=== PATIENT | female | born 1960 | race Two or more races ===

== ENCOUNTER 2018-06-13 20:56 | Inpatient (IN) | payer MEDICAID ==
[~2018-06-13] VITALS: Ht 157.5 cm; Wt 66.4 kg
[~2018-06-13 20:56] MED LIST: METF-370 PO
[2018-06-13 22:18] LABS: Basophils # (auto) 0 uL; Basophils % (auto) 0.1 % (0.0-2.0); Eosinophils # (auto) 0 uL; Hematocrit 48.6 % (36.0-46.0); Hemoglobin 16.4 g/dL (12.2-16.2); Lymphocytes # (auto) 1.1 uL; Lymphocytes % (auto) 7.2 % (10.0-50.0); Mean Corpuscular Hemoglobin 31.4 pg (28.0-32.0); Mean Corpuscular Hgb Conc. 33.7 g/dL (32.0-36.0); Mean Corpuscular Volume 93.4 fL (80.0-100.0); Monocytes # (auto) 1.1 uL; Monocytes % (auto) 7.5 % (0.0-12.0); Neutrophils # (auto) 12.7 uL; Neutrophils % (auto) 85.2 % (37.0-80.0); Nucleated Red Blood Cells % 0.1 %; Platelet Count (auto) 158 10^3/uL (140-450); Red Blood Cells 5.21 10^6/uL (4.0-5.20); Red Cell Distribution Width 13.7 % (11.8-14.3); White Blood Cell 14.9 10^3/uL (4.4-10.8)
[2018-06-13 22:21] LABS: Alanine Aminotransferase 266 U/L (13-56); Albumin 2.6 g/dL (3.4-5.0); Anion Gap 10 (5-15); Aspartate Aminotransferase 371 U/L (15-37); BUN/Creatinine Ratio 17.2; Blood Urea Nitrogen 28 mg/dL (7-18); Calcium 8.1 mg/dL (8.5-10.1); Carbon Dioxide 22 mmol/L (21-32); Chloride 98 mmol/L (98-107); GFR African American 42 mL/min; GFR Non-African American 34 mL/min; Glucose 198 mg/dL (74-106); Magnesium 2.5 mg/dL (1.6-2.6); Potassium 3.7 mmol/L (3.5-5.1); Sodium 130 mmol/L (136-145)
[2018-06-13 22:23] LABS: Partial Thromboplastin Time 32.9 sec (23.78-33.04); Prothrombin Time 10.7 sec (9.27-12.13)
[2018-06-13 22:26] LABS: Alkaline Phosphatase 165 U/L (45-117); Bilirubin, Total 0.6 mg/dL (0.2-1.0); Total Protein 8.4 g/dL (6.4-8.2)
[2018-06-14] MEDS ORDERED: LEVOFLOXACIN 750MG 150 ML IV ONE (01:00)
[2018-06-14] MEDS ORDERED: HYDROcodone-ACET 5/325MG TAB PO PRN ×2 (01:30→05:15)
[2018-06-14] MEDS ORDERED: DEXTROSE (50%) 50ML SYRG IV PRN (01:30)
[2018-06-14] MEDS ORDERED: SODIUM CHLORIDE 0.9% 1,000 ML IV ONE (02:00)
[2018-06-14] MEDS: cefTRIAXone 1GM/50ML D5W 50 ML IV SCH (05:56)
[2018-06-14 06:02] LABS: Basophils # (auto) 0 uL; Basophils % (auto) 0.1 % (0.0-2.0); Eosinophils # (auto) 0 uL; Hematocrit 44.8 % (36.0-46.0); Hemoglobin 15.1 g/dL (12.2-16.2); Lymphocytes # (auto) 1.4 uL; Lymphocytes % (auto) 12.2 % (10.0-50.0); Mean Corpuscular Hgb Conc. 33.6 g/dL (32.0-36.0); Mean Corpuscular Volume 92.2 fL (80.0-100.0); Monocytes # (auto) 0.9 uL; Monocytes % (auto) 7.6 % (0.0-12.0); Neutrophils # (auto) 9.4 uL; Neutrophils % (auto) 80.1 % (37.0-80.0); Platelet Count (auto) 135 10^3/uL (140-450); Red Blood Cells 4.86 10^6/uL (4.0-5.20); Red Cell Distribution Width 13.6 % (11.8-14.3); White Blood Cell 11.8 10^3/uL (4.4-10.8)
[2018-06-14 06:11] LABS: Calcium 7.8 mg/dL (8.5-10.1); Potassium 3.7 mmol/L (3.5-5.1)
[2018-06-14 06:13] LABS: BUN/Creatinine Ratio 22.9
[2018-06-14] MEDS: AZITHROMYCIN 500MG/ 250ML 250 ML IV SCH (06:22)
[2018-06-14] MEDS: ACCU-CHEK COMFORT CURVE STRIP VI SCH ×4 (08:35→21:56)
[2018-06-14] MEDS: InsuLIN REG 1unit/0.01ml Soln (100units/ml) SC SCH ×4 (08:39→21:56)
[2018-06-14] MEDS ORDERED: SODIUM CHLORIDE 0.9% 1,000 ML IV SCH (14:15)
--- NOTE | 2018-06-14 14:45 | NUR ---
ADMIT PATIENT arrived from ER vis w/c, accompanied by staff. Placed in bed, ht 5'2", Wt: 65.3 KG vs: 97.2 98 18 95% 104/66. Replaced tubing on IV and flushed with ns. On telemetry #35 running SR 96. Patient on oxygen at 4L via N/c
[2018-06-14 17:00] VITALS: BP 107/69
[2018-06-14] MEDS: SODIUM CHLORIDE 0.9% 1,000 ML IV SCH (17:30)
--- NOTE | 2018-06-14 19:10 | NUR ---
SHIFT REPORT Report given to MAIN Watt of maintenance technician 2nd shift. Pt. resting in bed, bed locked, in low pos., rails up x2 and call light in reach.
[2018-06-14 20:15] VITALS: BP 105/59
[2018-06-14 21:26] LABS: Urine Bacteria NONE SEEN /hpf (None Seen); Urine Blood 1+ /uL (Negative); Urine Specific Gravity 1.017 (1.001-1.035); Urine WBC 3 /hpf (0 - 5)
[2018-06-14 22:00] VITALS: BP 105/59
--- NOTE | 2018-06-14 22:00 | NUR ---
URNINE SPECIMEN FOR UA SENT TO LAB
[2018-06-14] MEDS: ACETAMINOPHEN 500 MG TAB PO PRN (22:22)
--- NOTE | 2018-06-15 00:59 | NUR ---
SPECIMEN FOR INFLUENZA SENT TO LAB
[2018-06-15] MEDS: SODIUM CHLORIDE 0.9% 1,000 ML IV SCH ×3 (01:03→21:56)
--- NOTE | 2018-06-15 01:40 | NUR ---
PATIENT POSITIVE FOR INFLUENZA A, CHARGE NURSE MAUREEN NOTIFIED.
--- NOTE | 2018-06-15 02:04 | NUR ---
PATIENT MOVED TO ROOM 231 FOR ISOLATION. PATIENT POSITIVE INFLUENZA A.
[2018-06-15 05:00] VITALS: BP 107/65
[2018-06-15] MEDS: cefTRIAXone 1GM/50ML D5W 50 ML IV SCH (05:31)
[2018-06-15] MEDS: AZITHROMYCIN 500MG/ 250ML 250 ML IV SCH (06:35)
[2018-06-15] MEDS: ACCU-CHEK COMFORT CURVE STRIP VI SCH ×4 (06:47→21:56)
[2018-06-15] MEDS: InsuLIN REG 1unit/0.01ml Soln (100units/ml) SC SCH ×4 (06:47→21:57)
--- NOTE | 2018-06-15 07:43 | NUR ---
opening patient in bed, bed in lowest position, call light within reach. No distress noted at this time. Patient is positive for influenza A virus, precautions will be changed to droplet precautions. Blood cultures negative C diff is pending on this patient, but Bm have been solid. WBC 11.8 Plt count 135 Neut 80.1 allergy to morphine noted
--- NOTE | 2018-06-15 07:53 | NUR ---
ENDORSED PATIENT CARE TO DAY SHIFT NURSE ANNA QUACH.
[2018-06-15 09:00] VITALS: BP 95/52
[2018-06-15 09:46] LABS: Basophils # (auto) 0 uL; Basophils % (auto) 0.2 % (0.0-2.0); Eosinophils # (auto) 0 uL; Hematocrit 40.4 % (36.0-46.0); Hemoglobin 13.5 g/dL (12.2-16.2); Lymphocytes # (auto) 1.4 uL; Lymphocytes % (auto) 16.6 % (10.0-50.0); Mean Corpuscular Hgb Conc. 33.5 g/dL (32.0-36.0); Mean Corpuscular Volume 92.7 fL (80.0-100.0); Monocytes # (auto) 1.3 uL; Monocytes % (auto) 15.5 % (0.0-12.0); Neutrophils # (auto) 5.9 uL; Neutrophils % (auto) 67.7 % (37.0-80.0); Platelet Count (auto) 152 10^3/uL (140-450); Red Blood Cells 4.36 10^6/uL (4.0-5.20); Red Cell Distribution Width 13.4 % (11.8-14.3); White Blood Cell 8.6 10^3/uL (4.4-10.8)
[2018-06-15 10:11] LABS: Calcium 7.5 mg/dL (8.5-10.1); Potassium 3.6 mmol/L (3.5-5.1)
[2018-06-15 12:45] VITALS: BP 120/70
[2018-06-15 17:00] VITALS: BP 109/57
--- NOTE | 2018-06-15 18:56 | NUR ---
closing patient in bed, bed in lowest position, call light within reach. No distress noted at this time droplet precaution in place. will endorse care to noc nurse
--- NOTE | 2018-06-15 19:30 | NUR ---
Opening Shift Note Assumed care of patient, awake and alert. Pt on Droplet precautions for positive Flu A. Pt denies pain/discomfort at this time. Bilat BS coarse on insp and exp R>L. Instructed on POC and to call for assist PRN, will continue to monitor for changes. Bed in low position with HOB elev. semi-Horvath's. Call light in bed beside pt. O2 per n/c.
[2018-06-15 20:00] VITALS: BP 105/59
[2018-06-15 21:30] VITALS: BP 126/79
[2018-06-15] MEDS: ACETAMINOPHEN 500 MG TAB PO PRN (21:55)
[2018-06-16 05:03] VITALS: BP 116/61
[2018-06-16] MEDS: cefTRIAXone 1GM/50ML D5W 50 ML IV SCH (05:38)
[2018-06-16 05:51] LABS: Hematocrit 38.3 % (36.0-46.0); Hemoglobin 13.2 g/dL (12.2-16.2); Mean Corpuscular Hemoglobin 31.7 pg (28.0-32.0); Mean Corpuscular Hgb Conc. 34.5 g/dL (32.0-36.0); Mean Corpuscular Volume 91.9 fL (80.0-100.0); Platelet Count (auto) 172 10^3/uL (140-450); Red Blood Cells 4.17 10^6/uL (4.0-5.20); Red Cell Distribution Width 13.6 % (11.8-14.3)
[2018-06-16 06:03] LABS: Potassium 3.5 mmol/L (3.5-5.1)
[2018-06-16 06:05] LABS: Blast Cells 0; Metamyelocytes % 0; Myelocytes % 0; Promyelocytes % 0; Reactive Lymphocytes 0
[2018-06-16 06:11] LABS: Calcium 7.4 mg/dL (8.5-10.1)
[2018-06-16] MEDS: ACCU-CHEK COMFORT CURVE STRIP VI SCH ×4 (06:26→21:38)
[2018-06-16] MEDS: InsuLIN REG 1unit/0.01ml Soln (100units/ml) SC SCH ×4 (06:35→21:45)
[2018-06-16] MEDS: AZITHROMYCIN 500MG/ 250ML 250 ML IV SCH (06:35)
--- NOTE | 2018-06-16 07:40 | NUR ---
opening patient in bed, asleep, bed in lowest position, call light within reach. No distress noted at this time. will f/u with morning assessment.
[2018-06-16 07:44] LABS: Band Neutrophils % (manual) 3; Basophils % (manual) 1 (0.0-2.0); Eosinophils % (manual) 1 (0-7); Lymphocytes % (manual) 24 (10.0-50.0); Monocytes % (manual) 18 (0-12)
[2018-06-16 09:00] VITALS: BP 121/66
--- NOTE | 2018-06-16 09:00 | NUR ---
md kerns rounding, discusses physical therapy, and discontinuing IV fluids. possible discharge in 2-3 days
[2018-06-16] MEDS: ACETAMINOPHEN 500 MG TAB PO PRN ×2 (11:43→21:38)
[2018-06-16 12:45] VITALS: BP 127/75
[2018-06-16 17:00] VITALS: BP 118/73
--- NOTE | 2018-06-16 17:00 | NUR ---
pt at bedside
--- NOTE | 2018-06-16 18:58 | NUR ---
closing patient in bed, at bedside. No distress noted at this time. Bed in lowest position, call light within reach. Today patient ambulated with physical therapy still awaiting patients respiratory culture to be given no currently consults per md luis f patient may discharge POSSIBLY will endorse care to noc nurse
[2018-06-16 22:00] VITALS: BP 133/66
[2018-06-17 05:00] VITALS: BP 115/61
[2018-06-17] MEDS: cefTRIAXone 1GM/50ML D5W 50 ML IV SCH (05:11)
[2018-06-17 05:47] LABS: Calcium 7.7 mg/dL (8.5-10.1); Potassium 3.5 mmol/L (3.5-5.1)
[2018-06-17 05:50] LABS: BUN/Creatinine Ratio 13.2
[2018-06-17] MEDS: AZITHROMYCIN 500MG/ 250ML 250 ML IV SCH (06:07)
[2018-06-17] MEDS: ACCU-CHEK COMFORT CURVE STRIP VI SCH ×4 (06:13→21:36)
[2018-06-17] MEDS: InsuLIN REG 1unit/0.01ml Soln (100units/ml) SC SCH ×4 (06:16→22:00)
--- NOTE | 2018-06-17 07:45 | NUR ---
OPENING NOTE Assumed care of patient from NOC RN, Robert. Patient awake and alert with no S/S of distress/SOB or pain. Nasal cannula in place, connected to 2L of O2. Instructed on POC and to call for assist PRN, verbalized understanding. Bed in lowest, locked position with side rails up x2 and call light within reach. Will continue to monitor for changes Q1hr and PRN.
[2018-06-17 08:36] VITALS: BP 111/55
[2018-06-17] MEDS: ACETAMINOPHEN 500 MG TAB PO PRN ×2 (09:27→17:58)
--- NOTE | 2018-06-17 13:33 | NUR ---
O2 SAT Patient ambulated around unit per MD request, O2 saturation level assessed afterwards, 83%. Patient stated she felt short of breath. Readministered oxygen via nasal cannula at 2L. Instructed patient to breath deeply through nose and after a few minutes rechecked O2 saturation, 92%. Advised patient to keep nasal cannula on. Will continue to monitor patient.
[2018-06-17 13:38] VITALS: BP 129/72
--- NOTE | 2018-06-17 15:08 | NUR ---
NUTRITION ASSESSMENT NOTES Please refer to link notes of nutrition screen form filed under the intervention section of the plan of care for further details. Est. Needs: 1350 kcal to 1700 kcal (25-30 kcal/kgBW), 68 gms to 81 gms pro (1.0-1.2 gms/kgBW). Will continue to monitor pertinent labs and reassess nutrient need prn Thank you. Addendum: 06/17/18 at [address] Amended: Links added.
[2018-06-17 17:06] VITALS: BP 116/56
--- NOTE | 2018-06-17 19:00 | NUR ---
OPENING NOTE RESUMED CARE OF PATIENT. PATIENT WAS A & O X 4. NO SIGNS OF SOB. PATIENT HAD A TEMPERATURE OF 100.2.
--- NOTE | 2018-06-17 19:48 | NUR ---
CLOSING NOTE Endorsed care of patient to NOC RN, Liseth.
[2018-06-17 20:00] VITALS: BP 136/67
--- NOTE | 2018-06-17 20:13 | NUR ---
TEMPERATURE CONTROL PATIENT HAD A TEMPERATURE OF 100.2 WHEN I RESUMED CARE. TEMPERATURE CONTROL WAS INITIATED, ICE BAGS PLACED UNDER ARMPITS, BLANKETS REMOVED. TEMPERATURE WAS RECHECKED AT 2113, TEMP WENT DOWN TO 99.7.
[2018-06-17 22:00] VITALS: BP 136/67
[2018-06-18] MEDS: cefTRIAXone 1GM/50ML D5W 50 ML IV SCH (04:40)
[2018-06-18 05:00] VITALS: BP 131/68
[2018-06-18 05:40] LABS: Hematocrit 37.9 % (36.0-46.0); Hemoglobin 12.9 g/dL (12.2-16.2); Mean Corpuscular Hemoglobin 31.5 pg (28.0-32.0); Mean Corpuscular Hgb Conc. 33.9 g/dL (32.0-36.0); Mean Corpuscular Volume 92.7 fL (80.0-100.0); Platelet Count (auto) 263 10^3/uL (140-450); Red Blood Cells 4.09 10^6/uL (4.0-5.20); Red Cell Distribution Width 13.2 % (11.8-14.3); White Blood Cell 11.3 10^3/uL (4.4-10.8)
[2018-06-18 05:53] LABS: Potassium 3.5 mmol/L (3.5-5.1)
[2018-06-18 05:58] LABS: BUN/Creatinine Ratio 15.3; Calcium 7.7 mg/dL (8.5-10.1)
[2018-06-18] MEDS: AZITHROMYCIN 500MG/ 250ML 250 ML IV SCH (06:31)
[2018-06-18] MEDS: ACCU-CHEK COMFORT CURVE STRIP VI SCH ×4 (06:39→21:35)
[2018-06-18] MEDS: InsuLIN REG 1unit/0.01ml Soln (100units/ml) SC SCH ×4 (06:40→21:44)
[2018-06-18 06:46] LABS: Basophils % (manual) 0 (0.0-2.0); Blast Cells 0; Metamyelocytes % 0; Myelocytes % 0; Promyelocytes % 0; Reactive Lymphocytes 0
--- NOTE | 2018-06-18 07:15 | NUR ---
OPENING NOTE Assumed care of patient from NOC RN, Liseth. Patient awake and alert with no S/S of distress/SOB or pain. Instructed on POC and to call for assist PRN, verbalized understanding. Bed in lowest, locked position with side rails up x2 and call light within reach. Will continue to monitor for changes Q1hr and PRN.
[2018-06-18 09:00] VITALS: BP 128/70
[2018-06-18] MEDS: OSELTAMIVIR 75 MG CAP PO SCH ×2 (10:54→21:41)
[2018-06-18 11:28] LABS: Band Neutrophils % (manual) 4; Eosinophils % (manual) 1 (0-7); Lymphocytes % (manual) 9 (10.0-50.0); Monocytes % (manual) 24 (0-12)
[2018-06-18 13:00] VITALS: BP 130/68
[2018-06-18 17:00] VITALS: BP 134/64
[2018-06-18] MEDS: ONDANSETRON HCL 4 MG/2 ML VIAL IV PRN ×2 (17:39→21:51)
--- NOTE | 2018-06-18 19:20 | NUR ---
OPENING NOTE RESMEN CARE FROM NURSE MAK ABARCA RN. PATIENT WAS SLEEPING WHEN I FIRST ENTERED. NO S/S OF DISTRESS. BED AT LOWEST POSITION, SIDE RAILS UP X 2.
--- NOTE | 2018-06-18 19:20 | NUR ---
CLOSING NOTE Endorsed care of patient to NOC RN, Liseth.
[2018-06-18 20:00] VITALS: BP 119/60
[2018-06-18 20:45] VITALS: BP 119/60
[2018-06-18] MEDS ORDERED: ONDANSETRON HCL 4 MG/2 ML VIAL ONE (21:48)
[2018-06-19 04:52] VITALS: BP 122/73
[2018-06-19] MEDS: cefTRIAXone 1GM/50ML D5W 50 ML IV SCH (05:10)
[2018-06-19 06:15] LABS: Basophils # (auto) 0 uL; Basophils % (auto) 0.2 % (0.0-2.0); Eosinophils # (auto) 0.3 uL; Eosinophils % (auto) 2.6 % (0.0-7.0); Hematocrit 37.2 % (36.0-46.0); Hemoglobin 12.5 g/dL (12.2-16.2); Lymphocytes # (auto) 1.2 uL; Lymphocytes % (auto) 10.6 % (10.0-50.0); Mean Corpuscular Hgb Conc. 33.7 g/dL (32.0-36.0); Mean Corpuscular Volume 92.1 fL (80.0-100.0); Monocytes # (auto) 1.8 uL; Monocytes % (auto) 16.4 % (0.0-12.0); Neutrophils # (auto) 7.9 uL; Neutrophils % (auto) 70.2 % (37.0-80.0); Nucleated Red Blood Cells % 0.1 %; Platelet Count (auto) 321 10^3/uL (140-450); Red Blood Cells 4.04 10^6/uL (4.0-5.20); Red Cell Distribution Width 13.3 % (11.8-14.3); White Blood Cell 11.2 10^3/uL (4.4-10.8)
[2018-06-19] MEDS: ACCU-CHEK COMFORT CURVE STRIP VI SCH ×4 (06:27→21:37)
[2018-06-19] MEDS: InsuLIN REG 1unit/0.01ml Soln (100units/ml) SC SCH ×4 (06:28→21:38)
[2018-06-19 06:33] LABS: Calcium 7.8 mg/dL (8.5-10.1); Potassium 3.5 mmol/L (3.5-5.1)
[2018-06-19] MEDS: AZITHROMYCIN 500MG/ 250ML 250 ML IV SCH (06:35)
[2018-06-19] MEDS: ONDANSETRON HCL 4 MG/2 ML VIAL IV PRN (06:37)
[2018-06-19 06:38] LABS: BUN/Creatinine Ratio 17.7
--- NOTE | 2018-06-19 07:30 | NUR ---
Opening Shift Note Assuming care of patient at this time. Patient is awake, alert, and oriented x4. Patient denies pain at this time. Patient shows no signs or symptoms of distress or shortness of breath. Patient is sitting in a chair at the bedside and states that she is feeling much better than yesterday. Patient was educated on the plan of care and to call for assistance as needed. Will continue to monitor. Call light within reach.
[2018-06-19 09:14] VITALS: BP 128/71
[2018-06-19] MEDS: OSELTAMIVIR 75 MG CAP PO SCH ×2 (11:05→21:33)
[2018-06-19 13:15] VITALS: BP 130/67
--- NOTE | 2018-06-19 14:15 | NUR ---
Re: Call from Dr. Dr. Avila called at this time in order to have patient transferred to [facility], will put in orders and begin transfer paperwork. Addendum: 06/19/18 at 1424 by FRANKLIN NUÑEZ RN RN This is not for this patient, disregard this note.
[2018-06-19] MEDS ORDERED: VANCOMYCIN PER PHARMACY 0 MG IV SCH (14:30)
[2018-06-19] MEDS ORDERED: FLUCONAZOLE 100 MG TAB PO ONE (14:30)
--- NOTE | 2018-06-19 14:30 | NUR ---
Re: Dr. yayo Aden is on the phone with Dr. Danielson at this time discussing plan of care and pulmonology consult.
[2018-06-19] MEDS: VANCOMYCIN 1GM/250ML 250 ML IV SCH (15:01)
[2018-06-19 17:18] VITALS: BP 119/60
--- NOTE | 2018-06-19 18:10 | NUR ---
at bedside Dr. Danielson at bedside at this time discussing plan of care with patient.
--- NOTE | 2018-06-19 19:10 | NUR ---
Closing Shift Note Patient is resting in bed comfortably. Patient denies any pain at this time. Report given and will endorse care to the manager emergency department RN.
--- NOTE | 2018-06-19 19:10 | NUR ---
OPENING NOTE RESUMED CARE OF PATIENT. IS AT BEDSIDE. NO S/S OF DISTRESS. BED IS AT LOWEST POSITION CALL LIGHT IS IN REACH.
[2018-06-19] MEDS: ACETAMINOPHEN 500 MG TAB PO PRN (19:24)
[2018-06-19 22:36] VITALS: BP 124/66
[2018-06-20] MEDS: PIPERACILLIN-TAZOB 3.375GM 100 ML IV SCH ×4 (00:19→18:25)
[2018-06-20] MEDS: VANCOMYCIN 1GM/250ML 250 ML IV SCH ×2 (03:43→15:22)
[2018-06-20 05:18] VITALS: BP 122/61
[2018-06-20 06:34] LABS: Hematocrit 35.9 % (36.0-46.0); Mean Corpuscular Hemoglobin 31.1 pg (28.0-32.0); Mean Corpuscular Hgb Conc. 33.5 g/dL (32.0-36.0); Platelet Count (auto) 335 10^3/uL (140-450); Red Blood Cells 3.86 10^6/uL (4.0-5.20); Red Cell Distribution Width 13.3 % (11.8-14.3); White Blood Cell 8.9 10^3/uL (4.4-10.8)
[2018-06-20 06:46] LABS: Basophils % (manual) 0 (0.0-2.0); Blast Cells 0; Eosinophils % (manual) 0 (0-7); Metamyelocytes % 0; Myelocytes % 0; Promyelocytes % 0; Reactive Lymphocytes 0
[2018-06-20 06:55] LABS: Albumin 1.7 g/dL (3.4-5.0); BUN/Creatinine Ratio 13.8; Calcium 7.4 mg/dL (8.5-10.1); Potassium 3.4 mmol/L (3.5-5.1)
[2018-06-20 06:58] LABS: Bilirubin, Total 0.9 mg/dL (0.2-1.0); Total Protein 6.9 g/dL (6.4-8.2)
[2018-06-20] MEDS: ACCU-CHEK COMFORT CURVE STRIP VI SCH ×4 (07:30→22:14)
--- NOTE | 2018-06-20 07:30 | NUR ---
Opening Shift Note Assuming care of patient at this time. Patient is currently sitting in a chair by the bedside brushing her teeth. Patient denies pain. Patient shows no signs or symptoms of shortness of breath or distress. Instructed patient on the plan of care for today and to call for assistance as needed. Call light within reach. Patient verbalized understanding. Patient states that she, "does not want to live here." Patient continues to express feelings of wanting to go home. Will continue to monitor.
[2018-06-20] MEDS: InsuLIN REG 1unit/0.01ml Soln (100units/ml) SC SCH ×4 (07:31→22:14)
[2018-06-20 08:10] LABS: Band Neutrophils % (manual) 1
[2018-06-20 08:11] LABS: Lymphocytes % (manual) 9 (10.0-50.0); Monocytes % (manual) 6 (0-12)
[2018-06-20 09:29] VITALS: BP 110/64
--- NOTE | 2018-06-20 09:50 | NUR ---
Re: at bedside Dr. Aden at bedside discussing plan of care with patient. Dr. Aden states that he wants patient to have a fever below 99.0 degrees F and for oxygen saturation to be between 93%-94% on room air before patient can be discharged home. New orders given, will carryout.
[2018-06-20] MEDS ORDERED: POTASSIUM CHL 20 Meq TABLET PO ONE (10:00)
[2018-06-20] MEDS: OSELTAMIVIR 75 MG CAP PO SCH ×2 (11:12→22:13)
[2018-06-20] MEDS: FLUCONAZOLE 100 MG TAB PO SCH (11:12)
[2018-06-20 13:03] VITALS: BP 130/69
[2018-06-20 17:09] VITALS: BP 138/78
--- NOTE | 2018-06-20 18:32 | NUR ---
Re: IS at bedside Incentive Spirometer at bedside, explained how to use to patient with family at bedside. Patient verbalized understanding.
--- NOTE | 2018-06-20 19:21 | NUR ---
Closing Shift Note Patient is resting in bed at this time. Patient shows no signs or symptoms of distress at this time. Patient denies pain. Family at bedside.
[2018-06-20 22:00] VITALS: BP 129/80
[2018-06-21] MEDS: VANCOMYCIN 1GM/250ML 250 ML IV SCH ×3 (02:57→23:00)
[2018-06-21 05:10] VITALS: BP 126/66
[2018-06-21] MEDS: PIPERACILLIN-TAZOB 3.375GM 100 ML IV SCH ×4 (06:11→17:54)
[2018-06-21] MEDS: InsuLIN REG 1unit/0.01ml Soln (100units/ml) SC SCH ×4 (06:17→21:18)
[2018-06-21] MEDS: ACCU-CHEK COMFORT CURVE STRIP VI SCH ×4 (06:17→21:18)
[2018-06-21 06:45] LABS: Basophils # (auto) 0.1 uL; Basophils % (auto) 0.8 % (0.0-2.0); Eosinophils # (auto) 0.3 uL; Hematocrit 36.5 % (36.0-46.0); Hemoglobin 12.2 g/dL (12.2-16.2); Lymphocytes # (auto) 1.7 uL; Lymphocytes % (auto) 22.3 % (10.0-50.0); Mean Corpuscular Hemoglobin 31.2 pg (28.0-32.0); Mean Corpuscular Hgb Conc. 33.4 g/dL (32.0-36.0); Mean Corpuscular Volume 93.7 fL (80.0-100.0); Monocytes # (auto) 1.2 uL; Monocytes % (auto) 15.3 % (0.0-12.0); Neutrophils # (auto) 4.4 uL; Neutrophils % (auto) 57.6 % (37.0-80.0); Platelet Count (auto) 371 10^3/uL (140-450); Red Blood Cells 3.89 10^6/uL (4.0-5.20); Red Cell Distribution Width 13.4 % (11.8-14.3); White Blood Cell 7.7 10^3/uL (4.4-10.8)
[2018-06-21 07:06] LABS: Potassium 3.7 mmol/L (3.5-5.1)
[2018-06-21 07:12] LABS: BUN/Creatinine Ratio 12.5; Calcium 7.5 mg/dL (8.5-10.1)
[2018-06-21 08:45] VITALS: BP 135/67
[2018-06-21] MEDS: FLUCONAZOLE 100 MG TAB PO SCH (12:19)
[2018-06-21] MEDS: OSELTAMIVIR 75 MG CAP PO SCH ×2 (12:19→22:00)
[2018-06-21 13:00] VITALS: BP 136/76
--- NOTE | 2018-06-21 14:17 | NUR ---
IV insertion IV access obtained, via clean sterile technique by inserting 22 gauge catheter at left AC after 2 attempts. IV secured properly. No trauma to site. Patient tolerated well.
[2018-06-21 17:00] VITALS: BP 146/80
--- NOTE | 2018-06-21 18:00 | NUR ---
Re: Ambulation Activity Ambulated around unit with patient. Checked oxygen saturation upon arrival back to room, Oxygen saturation was 85% on room air. Gave oxygen via nasal cannula and oxygen saturation went up to 95%.
--- NOTE | 2018-06-21 19:16 | NUR ---
Closing Shift Note Patient resting in bed at this time. Patient denies pain. Patient shows no signs or symptoms of shortness of breath or distress. Report given. Will endorse care to the night shift manager RN.
[2018-06-21 21:52] VITALS: BP 156/76
[2018-06-22 05:00] VITALS: BP 134/63
[2018-06-22] MEDS: PIPERACILLIN-TAZOB 3.375GM 100 ML IV SCH ×3 (05:55→12:00)
[2018-06-22] MEDS: InsuLIN REG 1unit/0.01ml Soln (100units/ml) SC SCH ×2 (05:55→12:07)
[2018-06-22] MEDS: ACCU-CHEK COMFORT CURVE STRIP VI SCH ×2 (05:56→12:08)
[2018-06-22 08:37] VITALS: BP 148/74
[2018-06-22] MEDS: VANCOMYCIN 1GM/250ML 250 ML IV SCH (09:00)
--- NOTE | 2018-06-22 10:06 | NUR ---
VANCOMYCIN HELD PER eMAR PROTOCOL. SEE LABS. WILL CONTINUE TO MONITOR.
[2018-06-22] MEDS: OSELTAMIVIR 75 MG CAP PO SCH (10:20)
[2018-06-22] MEDS: FLUCONAZOLE 100 MG TAB PO SCH (10:20)
[2018-06-22 12:41] VITALS: BP 142/73
[2018-06-22 13:33] VITALS: BP 142/73
[2018-06-22] MEDS ORDERED: VANCOMYCIN 1GM/250ML 250 ML IV SCH (16:00)
--- NOTE | 2018-06-22 16:00 | NUR ---
Discharge instructions given as ordered. Encourage to follow up with PMD as instructed. All questions and concerns addressed. Patient verbalized understanding. Medication reconciliation form completed and copy given to patient. IV removed with catheter intact, pressure dressing applied. Telemetry unit returned to ICU. Patient taken to vehicle with all personal belongings, accompanied by family member. No distress noted at time of departure.
== END 2018-06-22 16:00 | disposition home or self-care (01) | DRG 469 ==
LOC: ER 20:58 → TELE 06-14 01:44 → TELE-CENTR 06-14 14:41 → TELE-EAST 06-15 01:53
PROVIDERS: ADMIT Nurse Practitioner Family; ATTEND Internal Medicine
DX: N17.0 Acute kidney failure with tubular necrosis (principal); E43 Unspecified severe protein-calorie malnutrition; J10.08 Influenza due to other identified influenza virus with other specified pneumonia; J15.6 Pneumonia due to other Gram-negative bacteria; J90 Pleural effusion, not elsewhere classified; E86.0 Dehydration; E87.1 Hypo-osmolality and hyponatremia; R79.89 Other specified abnormal findings of blood chemistry; E11.9 Type 2 diabetes mellitus without complications; R09.02 Hypoxemia; N39.0 Urinary tract infection, site not specified; Z90.710 Acquired absence of both cervix and uterus; J98.11 Atelectasis; Z79.84 Long term (current) use of oral hypoglycemic drugs; Z68.26 Body mass index [BMI] 26.0-26.9, adult
CPT/HCPCS: 36415; 71045; 71046; 71250; 74176; 80048; 80053; 80202; 81001; 81025; 82962; 83036; 83605; 83735; 83880; 84484; 85007; 85025; 85027; 85610; 85730; 87040; 87070; 87077; 87086; 87186; 87205; 87804; 93005; 96365; 97116; 97163; 97530; G0378; J0696; J1815; J1956; J2405; J2543